=== PATIENT | female | born 1975 | race Caucasian/White ===

== ENCOUNTER 2017-06-10 18:18 | Emergency (ER) | payer OTHER ==
[~2017-06-10] VITALS: Ht 160 cm; Wt 81.6 kg
[2017-06-10 19:29] VITALS: BP 143/75
[2017-06-10] MEDS ORDERED: PERCOCET 5-3251 EACH PO (19:36)
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
== END 2017-06-10 19:52 ==
LOC: ERH 18:18
DX: T23.291A Burn of second degree of multiple sites of right wrist and hand, initial encounter (principal); X10.2XXA Contact with fats and cooking oils, initial encounter; Y92.9 Unspecified place or not applicable; Y93.G3 Activity, cooking and baking
CPT/HCPCS: 90471; 90714; 96372; J1885